=== PATIENT | female | born 1970 | race Caucasian/White ===

== ENCOUNTER 2021-08-19 17:16 | Emergency (ER) | payer MEDICARE, MEDICAID, SELFPAY ==
[2021-08-19 18:12] LABS: Add Urine Culture? Yes; Bacteria Urine 2+ /hpf; Bilirubin Urine Neg (Negative); Blood Urine Neg (Negative); Glucose Urine UA Norm (Normal); Ketones Urine Negative (Negative); Leukocyte Esterase Urine Negative (Negative); Nitrate Urine Negative (Negative); Protein Urine Neg (Negative); RBC Urine 0-4 /hpf (0-2); Squamous Epithelial Cell Urine 0-4 /hpf (0-5); Urine Appearance Clear (CLEAR); Urine Color Yellow (Yellow); Urobilinogen Urine 1 mg/dL (Negative); WBC Urine 0-4 /hpf (0-5); pH Urine 6 (5-7)
[2021-08-19 19:15] VITALS: BP 117/62; PULSE 72; RESP 16; TEMP 36.6; O2SAT 98; BMI 25.8
--- NOTE | 2021-08-19 19:22 | W.ED.FEMALGU ---
HPI - Female Genitourinary General: Chief complaint: Urogenital-Female Stated complaint: DEPRESSION Time Seen by Provider: 08/19/21 19:22 History of Present Illness: HPI Narrative: Patient is a 51-year-old female comes to the ED with UTI symptoms. She has been having on and off UTIs for the past 4 months. She reports having some dysuria and urine frequency. She denies any bladder pain or pain in lower back. Last antibiotic she was on for UTI was amoxicillin. Denies any fever, chills, abdominal pain, flank pain, nausea/vomiting. Associated symptoms: Deny abdominal pain, headache(s) or nausea Review of Systems Const: Denies: fever(s), chills or fatigue Eyes: Denies: change in vision or eye discomfort ENMT: Denies: throat pain, odynophagia, nasal discharge or nasal congestion Card: Denies: chest pain, palpitations, edema, swelling of feet/ankles, dyspnea on exertion or orthopnea Resp: Denies: dyspnea, productive cough or non-productive cough GI: Denies: abdominal pain, nausea, vomiting, diarrhea, constipation or hematochezia : Reports: dysuria and urinary frequency; Denies: flank pain or hematuria Musc: Denies: neck pain, back pain or extremity swelling Skin/Breast: Denies: rash or new lesions Neuro: Denies: headache(s), numbness in extremities or weakness in extremities PFSH ED PFSH: Medical History Psychiatric care Physical Exam Const: COMMON NORMALS: no acute distress, patient oriented x3, healthy appearing and alert GENERAL APPEARANCE: cooperative and comfortable HENMT: COMMON NORMALS: normocephalic HEAD & SCALP: normocephalic MOUTH: Normal oral and palatal mucosa present THROAT: posterior oropharynx normal and uvula midline Neck/C-Spine: COMMON NORMALS: supple GENERAL: Yes normal visual inspection Resp: COMMON NORMALS: normal respiratory effort, No retractions, No use of accessory muscles and clear to auscultation bilaterally AUSCULTATION: clear to auscultation bilaterally Cardio: COMMON NORMALS: regular rate, regular rhythm, S1 normal heart sound present, S2 normal heart sound present, No gallops present (Cardio), No clicks present (Cardio), No murmurs present (Cardio) and Peripheral pulses 2+ throughout RATE: regular rate RHYTHM: regular rhythm HEART SOUNDS: S1 normal heart sound present and S2 normal heart sound present PERIPHERAL PULSES: Peripheral pulses 2+ throughout GI: COMMON NORMALS: Normal to inspection, nondistended, normoactive bowel sounds present, Soft to palpation, non-tender and no masses PALPATION: Yes Soft to palpation : COMMON NORMALS: Yes no CVA tenderness BLADDER/KIDNEY EXAM: Yes no CVA tenderness Back/Pelvis: COMMON NORMALS: no CVA tenderness Extremity: COMMON NORMALS: normal to inspection Neuro: COMMON NORMALS: patient oriented x3 and moves all extremities SENSORIUM/ORIENTATION: Yes alert Skin: GENERAL SKIN EXAM: dry skin Course Vital Signs: Vital signs: Vital Signs Temperature 97.8 F 08/19/21 19:15 Pulse Rate 72 08/19/21 19:15 Respiratory Rate 16 08/19/21 19:15 Blood Pressure 117/62 08/19/21 19:15 Pulse Oximetry 98 08/19/21 19:15 MDM - Female MDM Narrative: Medical decision making narrative: Patient is a 51-year-old female comes to the ED with UTI symptoms. The symptoms have been occurring on and off for the past 4 months since she has been on 2 antibiotics. Last antibiotic she has been on was amoxicillin. Vitals are stable. Patient appears nontoxic and in no acute distress or pain and her exam is benign. UA showed some bacteria but little blood and white blood cells. Due to patient's symptoms we are going to treat her for UTI and give her a prescription for cefdinir. Patient is new to the area and does not have a primary care physician here. I placed an order with case management for patient to be referred to a PCP to get established with. Return ED precautions given. Patient understood agree with plan. Lab Data: Attestation: I reviewed the patient's lab results. Labs: Lab Results 08/19/21 17:30 Urine Color Yellow (Yellow) Urine Appearance Clear (CLEAR) Urine pH 6 (5-7) Ur Specific Gravit y 1.020 (1.005-1.030) Urine Protein Neg (Negative) Urine Glucose (UA) Norm (Normal) Urine Ketones Negative (Negative) Urine Blood Neg (Negative) Urine Nitrate Negative (Negative) Urine Bilirubin Neg (Negative) Urine Urobilinogen 1 mg/dL H mg/dL (Negative) Ur Leukocyte Moni ase Negative (Negative) Urine RBC 0-4 /hpf H /hpf (0-2) Urine WBC 0-4 /hpf H /hpf (0-5) Ur Squamous Epith Cells 0-4 /hpf H /hpf (0-5) Amorphous Sediment Not Reportable Urine Bacteria 2+ /hpf H /hpf (NONE) Discharge Plan Discharge Patient Disposition: Home Clinical Impression: Urinary tract infection Qualifiers: Urinary tract infection type: acute cystitis Hematuria presence: with hematuria Qualified Code(s): N30.01 - Acute cystitis with hematuria Condition: Stable Prescriptions: New cefdinir 300 mg capsule 300 mg PO BID 10 Days Qty: 20 RF: 0 No Action prazosin 2 mg capsule 2 mg PO BID RF: 0 risperidone [Risperdal] 1 mg tablet 1 mg PO BID RF: 0 gabapentin 300 mg capsule 300 mg PO TID RF: 0 divalproex [Depakote] 250 mg tablet,delayed release (DR/EC) 250 mg PO BID RF: 0 Discharge Orders: Discharge ED (Routine); Ordered 08/19/21 Ordered By: Luis Antonio Hernandez Discharge Diet: Regular Discharge Activity: Resume usual activity Patient Instructions: Urinary Tract Infection in Women (ED) Activity Restrictions/Additional Instructions: Follow-up with medical provider as directed. Case management will contact you in the next several days set up appointment with primary care physician. You can stop taking your previously prescribed amoxicillin. Take medications as prescribed. Drink plenty of fluids and stay hydrated. Return to the ER or your medical provider if condition worsens. Please read and understand discharge instructions. Thank you for choosing [facility] for your healthcare needs today. Please realize this is an emergency room and that we are providing you with a medical screening exam and this may not be complete and all inclusive of all the testing and or work up that you may need to determine your ailment or severity of your illness. It is very important that you follow up as instructed or that you return to the Emergency Department should you have concerns or if your condition changes or worsens in any way. Coding Level of Care Code ED Jai Alai Player for Jordyn oMrley Exam Comprehensive
--- NOTE | 2021-08-20 08:51 | PC.SOCIAL ---
referral received by Dr Hernandez to set up patient with a pcp. Tried to reach patient unable to reach or leave message at number provided.
== END 2021-08-19 19:51 | disposition home or self-care (01) ==
PROVIDERS: Family Medicine; Emergency Provider Physician Assistant
DX: N30.01 Acute cystitis with hematuria (principal)
CPT/HCPCS: 81001; 87077; 87086; 87186; 99282

== ENCOUNTER 2021-10-01 22:47 | Emergency (ER) | payer MEDICARE, MEDICAID, SELFPAY ==
[2021-10-01 22:59] VITALS: BP 133/48; PULSE 75; RESP 18; TEMP 36.8; O2SAT 100; BMI 31.6
--- NOTE | 2021-10-01 23:14 | ED_ITS ---
HPI - Extremity Problem General: Chief complaint: Extremity Problem,Nontraumatic Stated complaint: end of Fingers hurt Time Seen by Provider: 10/01/21 23:11 Source: patient Mode of arrival: ambulatory Limitations: no limitations History of Present Illness: 51-year-old female who states that she has history of chronic pain including neuropathy and fibromyalgia she states that she is to be on Lyrica but her then doctor took her off of it due to it being a controlled substance she states she no longer has a primary care doctor. States she was admitted recently to [facility] for psychiatric care and I discharged her on gabapentin she states the gabapentin does not help her chronic pain and she has been having increasing neuropathy pain in her fingertips. States pain is currently 5 out of 10 could not sleep tonight denies any injuries denies any worsening improving factors. Associated symptoms: Deny chest pain, fever(s) or rash Review of Systems Const: Denies: fever(s), chills, body aches or change in appetite Eyes: Denies: blurry vision or eye discomfort ENMT: Denies: throat pain or dental pain Card: Denies: chest pain Resp: Denies: dyspnea GI: Denies: abdominal pain, nausea, vomiting or diarrhea : Denies: dysuria Musc: Reports: extremity pain Skin/Breast: Denies: rash Neuro: Denies: headache(s) Psych: Denies: depression Maximus/Lymph: Denies: easy bruising All/Imm: Denies: urticaria PFSH ED PFSH: Medical History Psychiatric care Family History Denies family history of CAD (coronary artery disease) Physical Exam Const: COMMON NORMALS: no acute distress, patient oriented x3 and healthy appearing HENMT: COMMON NORMALS: normocephalic and atraumatic HEAD & SCALP: normocephalic and atraumatic Eye: COMMON NORMALS: Equal, round and reactive pupils present and EOMs intact bilaterally PUPIL: Yes Equal, round and reactive pupils present Neck/C-Spine: COMMON NORMALS: full ROM and supple Chest: COMMONS NORMALS: normal inspection of the chest and normal palpation of entire chest wall Resp: COMMON NORMALS: normal respiratory effort, No retractions, No use of accessory muscles and clear to auscultation bilaterally AUSCULTATION: clear to auscultation bilaterally Cardio: COMMON NORMALS: regular rate, regular rhythm and No murmurs present (Cardio) RATE: regular rate RHYTHM: regular rhythm GI: COMMON NORMALS: Normal to inspection, nondistended, normoactive bowel sounds present, Soft to palpation, non-tender and no masses PALPATION: Yes Soft to palpation Extremity: COMMON NORMALS: normal to inspection and full ROM OTHER: Good distal pulses no discoloration or tenderness to fingers Neuro: COMMON NORMALS: patient oriented x3, moves all extremities and no focal motor deficits Psych: COMMON NORMALS: mental status grossly normal, Normal thought process present and cooperative THOUGHT PROCESS: Normal thought process present Skin: COMMON NORMALS: no rashes or lesions noted and no wounds GENERAL SKIN EXAM: no rashes or lesions noted Course Vital Signs: Vital signs: Vital Signs Temperature 98.3 F 10/01/21 22:59 Pulse Rate 75 10/01/21 22:59 Respiratory Rate 18 10/01/21 22:59 Blood Pressure 133/48 10/01/21 22:59 Pulse Oximetry 100 10/01/21 22:59 MDM - Extremity (Nontraumatic) Medical Decision Making Patient presents here with chronic pain with pain to her fingers she has been taking gabapentin with little relief did give her hydrocodone here will prescribe her Naprosyn will get her PCP as she likely needs chronic pain management Discharge Plan Discharge Patient Disposition: Home Clinical Impression: Chronic pain Qualifiers: Chronic pain type: other chronic pain Qualified Code(s): G89.29 - Other chronic pain Condition: Stable Prescriptions: New Naprosyn 500 mg tablet 500 mg PO BID PRN (Reason: pain) Qty: 20 0RF No Action prazosin 2 mg capsule 2 mg PO BID 0RF risperidone [Risperdal] 1 mg tablet 1 mg PO BID 0RF gabapentin 300 mg capsule 300 mg PO TID 0RF divalproex [Depakote] 250 mg tablet,delayed release (DR/EC) 250 mg PO BID 0RF Discharge Orders: Discharge ED (Routine); Ordered 10/01/21 Ordered By: Prince Joseph Discharge Diet: Advance as tolerated Discharge Activity: Resume usual activity Patient Instructions: Chronic Pain (ED) Coding Level of Care Code ED Quality Control Engineering Technician for Chg Milli
[2021-10-01] MEDS: HYDROcodone-acetaminophen 5-325 mg Tablet 1 TAB PO (23:19)
--- NOTE | 2021-10-02 14:42 | DCPLANNER ---
manager metal had message to speak with patient about getting established with a primary care physician. manager metal called phone number [phone], this number was not taking calls at this time. manager metal unable to speak with patient or leave a voicemail for patient.
== END 2021-10-01 23:27 | disposition home or self-care (01) ==
PROVIDERS: Emergency Provider Emergency Medicine
DX: G89.29 Other chronic pain (principal)
CPT/HCPCS: 99283

== ENCOUNTER 2021-12-03 09:17 | Inpatient (IN) | payer MEDICARE, MEDICAID, SELFPAY ==
[2021-12-03 09:36] VITALS: BP 140/81; PULSE 90; RESP 14; TEMP 36.8; O2SAT 94; BMI 30.4
--- NOTE | 2021-12-03 10:24 | ED.C_ITS ---
Documented by User: JESÚS Zaragoza 12/04/21 07:19 HPI - Psych General: Chief Complaint: Psychiatric Symptoms Stated Complaint: suicidal tendencies/anxiety/stress/abd pain Time Seen by Provider: 12/03/21 10:00 History of Present Illness: Patient is a 51-year-old female comes to the ED for psych eval. Patient is new to the area and was going to be set up in the [facility] but needed to come get a psych eval for since she has been out of her medications. Patient says she takes divalproex, risperidone and trazodone and has been out of those medications for a month. She has a history of depression, anxiety and past suicidal ideations. She says today she is not currently suicidal. She endorses being very anxious. She does hear voices in her head that tell her that she is a terrible person. Denies any recent drug or alcohol use. Associated symptoms: Reports auditory hallucinations and depression; Deny visual hallucinations, homicidal ideation or suicidal ideation Review of Systems Const: Denies: fever(s), chills or fatigue Eyes: Denies: change in vision or eye discomfort ENMT: Denies: throat pain, odynophagia, nasal discharge or nasal congestion Card: Denies: chest pain, palpitations, edema, swelling of feet/ankles, dyspnea on exertion or orthopnea Resp: Denies: dyspnea, productive cough or non-productive cough GI: Denies: abdominal pain, nausea, vomiting, diarrhea, constipation or hematochezia : Denies: flank pain, dysuria or hematuria Musc: Denies: neck pain, back pain or extremity swelling Skin/Breast: Denies: rash or new lesions Neuro: Denies: headache(s), numbness in extremities or weakness in extremities Psych: Reports: anxiety, depression and auditory hallucinations; Denies: visual hallucinations, suicidal ideation or homicidal ideation [facility] ED PFSH: Medical History Psychiatric care Family History Denies family history of CAD (coronary artery disease) Physical Exam Const: COMMON NORMALS: patient oriented x3 and alert HENMT: COMMON NORMALS: normocephalic HEAD & SCALP: normocephalic MOUTH: Normal oral and palatal mucosa present THROAT: posterior oropharynx normal and uvula midline Neck/C-Spine: COMMON NORMALS: supple GENERAL: Yes normal visual inspection Resp: COMMON NORMALS: normal respiratory effort, No retractions, No use of accessory muscles and clear to auscultation bilaterally AUSCULTATION: clear to auscultation bilaterally Cardio: COMMON NORMALS: regular rate, regular rhythm, S1 normal heart sound present, S2 normal heart sound present, No gallops present (Cardio), No clicks present (Cardio), No murmurs present (Cardio) and Peripheral pulses 2+ throughout RATE: regular rate RHYTHM: regular rhythm HEART SOUNDS: S1 normal heart sound present and S2 normal heart sound present PERIPHERAL PULSES: Peripheral pulses 2+ throughout GI: COMMON NORMALS: Normal to inspection, nondistended, normoactive bowel sounds present, Soft to palpation, non-tender and no masses PALPATION: Yes Soft to palpation : COMMON NORMALS: Yes no CVA tenderness BLADDER/KIDNEY EXAM: Yes no CVA tenderness Back/Pelvis: COMMON NORMALS: no CVA tenderness Extremity: COMMON NORMALS: normal to inspection Neuro: COMMON NORMALS: patient oriented x3 and moves all extremities SENSORIUM/ORIENTATION: Yes alert Psych: COMMON NORMALS: mental status grossly normal, cooperative and speech normal ATTITUDE: Yes calm ACTIVITY/MOTOR BEHAVIOR: Yes appropriate eye contact and Yes fidgeting SPEECH: Yes normal speech THOUGHT CONTENT: No Suicidality present, No Homicidality present and Yes Hallucination(s) present auditory ATTENTION/CONCENTRATION: Yes attention grossly intact and Yes concentration grossly intact MEMORY/COGNITION: Yes memory grossly intact and Yes cognition grossly intact Skin: GENERAL SKIN EXAM: dry skin Course Consultations: Consultation #1: Dr. Pemberton was here in the ED seeing another patient, so I was able to talk to him in person about Tahira Hughes. He agreed to have patient admitted and they will reevaluate psych meds. Time: 10:15 Vital Signs: Vital signs: Vital Signs Temperature 98.2 F 12/06/21 19:40 Pulse Rate 80 12/07/21 06:00 Respiratory Rate 18 12/07/21 06:00 Blood Pressure 138/84 12/07/21 06:00 Pulse Oximetry 98 12/07/21 06:00 [facility] - Psych Medical Decision Making Patient is a 51-year-old female comes to the ED for psych eval. Patient is new to the area and was going to be set up in the [facility] but needed to come get a psych eval for since she has been out of her medications. Patient says she takes divalproex, risperidone and trazodone and has been out of those medications for a month. Denies any SI but does endorse auditory hallucinations. Psych prescreening labs performed. Urine drug screen was clean. Blood alcohol level normal. I talked with Dr. Pemberton about patient case and he agreed to have patient admitted into the [facility]. Dr. Rincon placed the admitting orders. Lab Data I reviewed the patient's lab results. : 12/03/21 10:30 12/03/21 10:30 Laboratory Results WBC 4.7 10^3/uL (4.0-10.0) 12/03/21 10:30 RBC 4.86 10^6/uL (4.1-5.3) 12/03/21 10:30 Hgb 14.4 g/dL (11.5-15.3) 12/03/21 10:30 Hct 44.2 % (37.0-47.0) 12/03/21 10:30 MCV 90.9 fl (81-99) 12/03/21 10:30 MCH 29.6 pg (28.0-34.0) 12/03/21 10:30 MCHC 32.6 g/dL (30.0-36.0) 12/03/21 10:30 RDW 12.7 % (12.1-15.1) 12/03/21 10:30 Plt Count 202 10^3/cmm (130-400) 12/03/21 10:30 MPV 12.6 fL (7.4-10.4) H 12/03/21 10:30 Neut % (Auto) 59.7 % 12/03/21 10:30 Lymph % (Auto) 26.7 % 12/03/21 10:30 [place] % (Auto) 10.7 % 12/03/21 10:30 Eos % (Auto) 1.1 % 12/03/21 10:30 Baso % (Auto) 0.9 % 12/03/21 10:30 Neut # (Auto) 2.81 10^3/uL (1.8-7.7) 12/03/21 10:30 Lymph # (Auto) 1.3 10^3/uL (0.8-4.8) 12/03/21 10:30 Williamson # (Auto) 0.5 10^3/uL (0.2-0.9) 12/03/21 10:30 Eos # (Auto) 0.1 10^3/uL (0.0-0.8) 12/03/21 10:30 Baso # (Auto) 0.0 10^3/uL (0.0-0.1) 12/03/21 10:30 Nucleated RBC % (auto) 0 % 12/03/21 10:30 Nucleated RBCs # 0.0 /100WBC 12/03/21 10:30 Sodium 137 mmol/L (136-145) 12/03/21 10:30 Potassium 4.3 mmol/L (3.5-5.1) 12/03/21 10:30 Chloride 100 mmol/L (98-107) 12/03/21 10:30 Carbon Dioxide 25 mmol/L (22-29) 12/03/21 10:30 Anion Gap 16.3 (5-19) 12/03/21 10:30 BUN 12 mg/dL (6-20) 12/03/21 10:30 Creatinine 0.6 mg/dL (0.5-0.9) 12/03/21 10:30 GFR Calculation 105.8 mL/min (90-130) 12/03/21 10:30 Glucose 105 mg/dL (65-115) 12/03/21 10:30 Calculated Osmolality 284 mOsm/kg (285-295) L 12/03/21 10:30 Calcium 9.6 mg/dL (8.5-10.5) 12/03/21 10:30 Total Bilirubin 0.4 mg/dL (0.15-1.2) 12/03/21 10:30 AST 19 U/L (0-32) 12/03/21 10:30 ALT 17 U/L (0-33) 12/03/21 10:30 Alkaline Phosphatase 111 IU/L (35-105) H 12/03/21 10:30 Total Protein 8.1 g/dL (6.6-8.7) 12/03/21 10:30 Albumin 4.7 g/dL (3.5-5.2) 12/03/21 10:30 Globulin 3.4 g/dL (1.3-4.6) 12/03/21 10:30 Urine Color Dark yellow (Yellow) 12/03/21 09:45 Urine Appearance Clear (CLEAR) 12/03/21 09:45 Urine pH 5 (5-7) 12/03/21 09:45 Ur Specific [place] 1.020 (1.005-1.030) 12/03/21 09:45 Urine Protein Neg (Negative) 12/03/21 09:45 Urine Glucose (UA) Norm (Normal) 12/03/21 09:45 Urine Ketones Negative (Negative) 12/03/21 09:45 Urine Blood Neg (Negative) 12/03/21 09:45 Urine Nitrate Negative (Negative) 12/03/21 09:45 Urine Bilirubin Neg (Negative) 12/03/21 09:45 Urine Urobilinogen Neg mg/dL (Negative) 12/03/21 09:45 Ur Leukocyte Esterase Negative (Negative) 12/03/21 09:45 Salicylates < 0.3 mg/dL (3-10) L 12/03/21 10:30 Urine Opiates Screen Negative ng/mL (Negative) 12/03/21 09:45 Acetaminophen < 5.0 ug/mL (10-30) L 12/03/21 10:30 Ur Barbiturates Screen Negative ng/mL (Negative) 12/03/21 09:45 Ur Phencyclidine Scrn Negative ng/mL (Negative) 12/03/21 09:45 Ur Amphetamines Screen Negative ng/mL (Negative) 12/03/21 09:45 U Benzodiazepines Scrn Negative ng/mL (Negative) 12/03/21 09:45 Urine Cocaine Screen Negative ng/mL (Negative) 12/03/21 09:45 U Marijuana (THC) Screen Negative ng/mL (Negative) 12/03/21 09:45 Ethyl Alcohol < 10 mg/dL (0-10) 12/03/21 10:30 Discharge Plan Discharge Patient Disposition: Admitted As Inpatient Admit Provider: Tommy Pemberton Condition: Stable Discharge Diet: Regular Discharge Activity: Resume usual activity Coding Level of Care Code ED [employer] Consultant for Chg Fwd Exam Comprehensive Documented by User: Arash Rincon MD 12/07/21 22:39 HPI - Psych General: Chief Complaint: Psychiatric Symptoms Stated Complaint: suicidal tendencies/anxiety/stress/abd pain Time Seen by Provider: 12/03/21 10:00 PFS ED PFSH: Medical History Psychiatric care Family History Denies family history of CAD (coronary artery disease) Course Vital Signs: Vital signs: Vital Signs Temperature 98.2 F 12/06/21 19:40 Pulse Rate 80 12/07/21 06:00 Respiratory Rate 18 12/07/21 06:00 Blood Pressure 138/84 12/07/21 06:00 Pulse Oximetry 98 12/07/21 06:00 MDM - Psych Medical Decision Making Patient is a 51-year-old female comes to the ED for psych eval. Patient is new to the area and was going to be set up in the [facility] but needed to come get a psych eval for since she has been out of her medications. Patient says she takes divalproex, risperidone and trazodone and has been out of those medications for a month. Denies any SI but does endorse auditory hallucinations. Psych prescreening labs performed. Urine drug screen was clean. Blood alcohol level normal. I talked with Dr. Pemberton about patient case and he agreed to have patient admitted into the [facility]. Dr. Rincon placed the admitting orders. I discussed this case with Luis Antonio ESPINOSA. I have reviewed documentation. Arash Rincon MD Emergency Medicine Lab Data : 12/03/21 10:30 12/03/21 10:30 Laboratory Results WBC 4.7 10^3/uL (4.0-10.0) 12/03/21 10:30 RBC 4.86 10^6/uL (4.1-5.3) 12/03/21 10:30 Hgb 14.4 g/dL (11.5-15.3) 12/03/21 10:30 Hct 44.2 % (37.0-47.0) 12/03/21 10:30 MCV 90.9 fl (81-99) 12/03/21 10:30 MCH 29.6 pg (28.0-34.0) 12/03/21 10:30 MCHC 32.6 g/dL (30.0-36.0) 12/03/21 10:30 RDW 12.7 % (12.1-15.1) 12/03/21 10:30 Plt Count 202 10^3/cmm (130-400) 12/03/21 10:30 MPV 12.6 fL (7.4-10.4) H 12/03/21 10:30 Neut % (Auto) 59.7 % 12/03/21 10:30 Lymph % (Auto) 26.7 % 12/03/21 10:30 Williamson % (Auto) 10.7 % 12/03/21 10:30 Eos % (Auto) 1.1 % 12/03/21 10:30 Baso % (Auto) 0.9 % 12/03/21 10:30 Neut # (Auto) 2.81 10^3/uL (1.8-7.7) 12/03/21 10:30 Lymph # (Auto) 1.3 10^3/uL (0.8-4.8) 12/03/21 10:30 Williamson # (Auto) 0.5 10^3/uL (0.2-0.9) 12/03/21 10:30 Eos # (Auto) 0.1 10^3/uL (0.0-0.8) 12/03/21 10:30 Baso # (Auto) 0.0 10^3/uL (0.0-0.1) 12/03/21 10:30 Nucleated RBC % (auto) 0 % 12/03/21 10:30 Nucleated RBCs # 0.0 /100WBC 12/03/21 10:30 Sodium 137 mmol/L (136-145) 12/03/21 10:30 Potassium 4.3 mmol/L (3.5-5.1) 12/03/21 10:30 Chloride 100 mmol/L (98-107) 12/03/21 10:30 Carbon Dioxide 25 mmol/L (22-29) 12/03/21 10:30 Anion Gap 16.3 (5-19) 12/03/21 10:30 BUN 12 mg/dL (6-20) 12/03/21 10:30 Creatinine 0.6 mg/dL (0.5-0.9) 12/03/21 10:30 GFR Calculation 105.8 mL/min (90-130) 12/03/21 10:30 Glucose 105 mg/dL (65-115) 12/03/21 10:30 Calculated Osmolality 284 mOsm/kg (285-295) L 12/03/21 10:30 Calcium 9.6 mg/dL (8.5-10.5) 12/03/21 10:30 Total Bilirubin 0.4 mg/dL (0.15-1.2) 12/03/21 10:30 AST 19 U/L (0-32) 12/03/21 10:30 ALT 17 U/L (0-33) 12/03/21 10:30 Alkaline Phosphatase 111 IU/L (35-105) H 12/03/21 10:30 Total Protein 8.1 g/dL (6.6-8.7) 12/03/21 10:30 Albumin 4.7 g/dL (3.5-5.2) 12/03/21 10:30 Globulin 3.4 g/dL (1.3-4.6) 12/03/21 10:30 Urine Color Dark yellow (Yellow) 12/03/21 09:45 Urine Appearance Clear (CLEAR) 12/03/21 09:45 Urine pH 5 (5-7) 12/03/21 09:45 Ur Specific [place] 1.020 (1.005-1.030) 12/03/21 09:45 Urine Protein Neg (Negative) 12/03/21 09:45 Urine Glucose (UA) Norm (Normal) 12/03/21 09:45 Urine Ketones Negative (Negative) 12/03/21 09:45 Urine Blood Neg (Negative) 12/03/21 09:45 Urine Nitrate Negative (Negative) 12/03/21 09:45 Urine Bilirubin Neg (Negative) 12/03/21 09:45 Urine Urobilinogen Neg mg/dL (Negative) 12/03/21 09:45 Ur Leukocyte Esterase Negative (Negative) 12/03/21 09:45 Salicylates < 0.3 mg/dL (3-10) L 12/03/21 10:30 Urine Opiates Screen Negative ng/mL (Negative) 12/03/21 09:45 Acetaminophen < 5.0 ug/mL (10-30) L 12/03/21 10:30 Ur Barbiturates Screen Negative ng/mL (Negative) 12/03/21 09:45 Ur Phencyclidine Scrn Negative ng/mL (Negative) 12/03/21 09:45 Ur Amphetamines Screen Negative ng/mL (Negative) 12/03/21 09:45 U Benzodiazepines Scrn Negative ng/mL (Negative) 12/03/21 09:45 Urine Cocaine Screen Negative ng/mL (Negative) 12/03/21 09:45 U Marijuana (THC) Screen Negative ng/mL (Negative) 12/03/21 09:45 Ethyl Alcohol < 10 mg/dL (0-10) 12/03/21 10:30 Discharge Plan Discharge Patient Disposition: Admitted As Inpatient Admit Provider: Tommy Pemberton Condition: Stable Discharge Diet: Regular Discharge Activity: Resume usual activity Coding Level of Care Code ED [employer] Consultant for Jordyn Fwd Exam Comprehensive
[2021-12-03 10:26] LABS: Add Urine Microscopic? NO; Charge for UA Resulting for Rev
[2021-12-03 10:33] LABS: Basophils % 0.9 %; Eosinophils # 0.1 10^3/uL (0.0-0.8); Eosinophils % 1.1 %; Hematocrit 44.2 % (37.0-47.0); Hemoglobin 14.4 g/dL (11.5-15.3); Lymphocytes # 1.3 10^3/uL (0.8-4.8); Lymphocytes % 26.7 %; Mean Corpuscular HGB Conc 32.6 g/dL (30.0-36.0); Mean Corpuscular Hemoglobin 29.6 pg (28.0-34.0); Mean Corpuscular Volume 90.9 fl (81-99); Mean Platelet Volume 12.6 fL (7.4-10.4); Monocytes # 0.5 10^3/uL (0.2-0.9); Monocytes % 10.7 %; Neutrophils # 2.81 10^3/uL (1.8-7.7); Neutrophils % 59.7 %; Nucleated Red Blood Cells % 0 %; Platelet Count 202 10^3/cmm (130-400); Red Blood Count 4.86 10^6/uL (4.1-5.3); Red Cell Distribution Width 12.7 % (12.1-15.1); White Blood Count 4.7 10^3/uL (4.0-10.0)
[2021-12-03 10:36] LABS: Urine Appearance Clear (CLEAR); Urine Color Dark Yellow (Yellow); pH Urine 5 (5-7)
[2021-12-03 10:37] LABS: Bilirubin Urine Neg (Negative); Blood Urine Neg (Negative); Glucose Urine UA Norm (Normal); Ketones Urine Negative (Negative); Leukocyte Esterase Urine Negative (Negative); Nitrate Urine Negative (Negative); Protein Urine Neg (Negative); Urobilinogen Urine Neg (Negative)
[2021-12-03 10:46] LABS: Amphetamines Screen Urine Negative (Negative); Barbiturates Screen Urine Negative (Negative); Benzodiazepines Screen Urine Negative (Negative); Cocaine Screen Urine Negative (Negative); Opiate Screen Urine Negative (Negative); PCP Screen Urine Negative (Negative); THC Screen Urine Negative (Negative)
[2021-12-03] MEDS: LORazepam 1 mg Tablet PO (10:46)
[2021-12-03 10:59] LABS: Alanine Aminotransferase 17 U/L (0-33); Albumin Level 4.7 g/dL (3.5-5.2); Alkaline Phosphatase 111 IU/L (35-105); Anion Gap 16.3 (5-19); Aspartate Amino Transferase 19 U/L (0-32); Blood Urea Nitrogen 12 mg/dL (6-20); Calcium 9.6 mg/dL (8.5-10.5); Carbon Dioxide 25 mmol/L (22-29); Chloride 100 mmol/L (98-107); Globulin 3.4 g/dL (1.3-4.6); Glomerular Filtration Rate 105.8 mL/min (90-130); Glucose 105 mg/dL (65-115); Osmolality Calculated 284 mOsm/kg (285-295); Potassium 4.3 mmol/L (3.5-5.1); Sodium 137 mmol/L (136-145); Total Bilirubin 0.4 mg/dL (0.15-1.2); Total Protein 8.1 g/dL (6.6-8.7)
[2021-12-03 11:02] LABS: Acetaminophen < 5.0 ug/mL (10-30); Alcohol Level < 10 mg/dL (0-10); Salicylate < 0.3 mg/dL (3-10)
--- NOTE | 2021-12-03 13:19 | PC.PHAR ---
pt states she takes care of her own medications-pt states she hasnt taken depakote dr 250mg,gabapentin 300mg,prazosin 2mg or risperidone 1mg in a couple of months ext med history shows last filled 08/06/21 30d/s
[2021-12-03 13:45] VITALS: BP 124/66; PULSE 88; TEMP 36.8; O2SAT 94
--- NOTE | 2021-12-03 14:34 | PC.NURSE ---
report to Ciara IRWIN on [facility]
[2021-12-03 14:36] VITALS: BP 115/70; PULSE 88; RESP 17; TEMP 36.8; O2SAT 98
[2021-12-03] MEDS: hyDROXYzine 25 mg Capsule 50 MG PO (14:58)
[2021-12-03] MEDS: nicotine 2 mg Gum BUCCAL (14:58)
[2021-12-03] MEDS: nicotine 4 mg lozenge MUCOUS MEM (19:32)
[2021-12-03 20:53] VITALS: RESP 18
[2021-12-04] MEDS: trazodone 50 mg Tablet PO ×2 (00:40→20:13)
--- NOTE | 2021-12-04 00:49 | PC.NURSE ---
0047- requested trazodone for sleep.
[2021-12-04 06:00] VITALS: BP 107/75; PULSE 72; RESP 18; TEMP 36.6; O2SAT 98
[2021-12-04] MEDS: ciprofloxacin 500 mg Tablet PO ×2 (08:34→17:12)
[2021-12-04] MEDS: nicotine 4 mg lozenge MUCOUS MEM ×3 (08:34→20:30)
[2021-12-04] MEDS: OLANZapine 5 mg ODT PO (09:01)
[2021-12-04] MEDS: ibuprofen 600 mg Tablet PO (09:50)
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
[2021-12-04] MEDS: nicotine 21 mg Patch 1 PATCH TRANSDERMA (12:20)
[2021-12-04 14:00] VITALS: BP 100/62; PULSE 72; RESP 16; TEMP 36.7; O2SAT 96
--- NOTE | 2021-12-04 16:53 | PC.SOCIAL ---
Client did not attend group.
[2021-12-04] MEDS: prazosin 1 mg Capsule 2 MG PO (20:13)
[2021-12-04] MEDS: risperiDONE 1 mg Tablet PO (20:13)
[2021-12-04 20:40] VITALS: BP 135/79; PULSE 80; RESP 16; TEMP 36.7; O2SAT 91
[2021-12-04] MEDS: benztropine 1 mg Tablet PO (22:15)
--- NOTE | 2021-12-04 22:18 | PC.NURSE ---
2218-requested something for restless leg. she was given cogentin.
[2021-12-05] MEDS: nicotine 2 mg Gum BUCCAL ×2 (04:40→20:42)
[2021-12-05 06:00] VITALS: BP 110/70; PULSE 82; RESP 16; TEMP 36.6; O2SAT 91
[2021-12-05] MEDS: ciprofloxacin 500 mg Tablet PO ×2 (08:28→17:31)
[2021-12-05] MEDS: nicotine 4 mg lozenge MUCOUS MEM ×5 (08:28→20:45)
--- NOTE | 2021-12-05 11:54 | P.NPUPN_ITS ---
Subjective NPU Subjective: She said that the other patients are driving her crazy and she needs to leave. She was reminded that the reason that she is here is to get her back on her medications which is the Risperdal, prazosin, trazodone and Cogentin. She said she did not like the risperidone because when she stopped taking it she felt bad. She was told that if we needed to change to a different antipsychotic we would need to keep her in the hospital longer. Our agreement with [facility] was that we get her back on her medications and that is what we need to do before we send her back there. She said that she would probably stop taking it when she leaves. She said she had some difficulty with her legs moving and feeling uncomfortable last night. She took some Cogentin and that helped somewhat and she was able to go back to sleep.She also asked she also wanted to go on clonazepam. She said that really works for her anxiety. Her doctor took her off of it because she has addictive tendencies. Mental Status Exam MSE Comments: This is an obese 51-year-old female who appears approximately her stated age and is in no acute distress. She is pleasant and cooperative with the evaluation. Eye contact is good. psychomotor activity is normal. Speech is at a regular rate and rhythm, normal volume, good articulation, not pressured. Alert, oriented X3 Attention and concentration is normal. Memory is intact Mood is good. Affect is euthymic. Thought process is logical and goal-directed. Thought content: She endorses auditory but no visual hallucinations. No delusions or paranoia are noted. No current suicidal ideation, and no homicidal ideation. Fund of knowledge is diminished. Insight and judgment appear to be poor. Impulse control is poor. Cognition: Patient Appearance: Appropriate Level of Consciousness: Awake and Follows Commands Patient Cognition Impaired: No Ability to Follow Directions: Good Patient Orientation (long list): Person, Place, Name, Age and Birthday Comprehension Ability: Understands Concepts Hallucination Type: None Delusion Description: Not Present Thought Process: Disorganized Affect: Affect Description: Appropriate and Calm Depressive Symptoms: Increased Anxiety Behavior: Patient Behavior: Appropriate and Cooperative Speech Pattern: Appropriate and Clear Vitals/I&O/Wt Last Vital Signs Temp 97.8 F 12/05/21 06:00 Pulse 82 12/05/21 06:00 Resp 16 12/05/21 06:00 BP 110/70 04/08/22 06:00 Pulse Ox 91 12/05/21 06:00 Data NPU : 12/03/21 10:30 12/03/21 10:30 Involuntary Hold Information 96 Hour Hold: 96 Hour Involuntary Admission: No Attestations NPU Medical Necessity Statement*: Inpatient hospitalization is medically necessary and the clinically appropriate intervention at this time. We will initiate medications and make changes as indicated. Coding Level of Care Code Acute Neurosurgery Physician for Jordyn Morley
[2021-12-05 14:00] VITALS: BP 112/50; PULSE 66; RESP 20; TEMP 36.6; O2SAT 99
--- NOTE | 2021-12-05 14:21 | PC.SOCIAL ---
Patient attended group, but did not contribute.
[2021-12-05] MEDS: ibuprofen 600 mg Tablet PO (19:14)
[2021-12-05] MEDS: prazosin 1 mg Capsule 2 MG PO (20:42)
[2021-12-05] MEDS: risperiDONE 1 mg Tablet 2 MG PO (20:42)
[2021-12-05] MEDS: hyDROXYzine 25 mg Capsule 50 MG PO (20:42)
[2021-12-05 21:32] VITALS: BP 111/77; PULSE 73; RESP 18; O2SAT 97
[2021-12-05] MEDS: benztropine 1 mg Tablet PO (22:36)
[2021-12-05] MEDS: alum-mag-hydroxide-sime 30 mL UDC PO (22:58)
[2021-12-06 05:47] VITALS: BP 121/88; PULSE 65; RESP 16; O2SAT 96
[2021-12-06] MEDS: ciprofloxacin 500 mg Tablet PO ×2 (10:07→17:17)
--- NOTE | 2021-12-06 10:14 | P.NPUPN_ITS ---
Subjective NPU Subjective: She was found in bed but awake at 10 AM. She says that she feels really good. She feels like her normal self. She would like to go back to [facility] today. She does not really understand why she cannot. She did not complain about any of her medications. She says that she slept well. Mental Status Exam MSE Comments: This is an obese 51-year-old female who appears approximately her stated age and is in no acute distress. She is pleasant and cooperative with the evaluation. Eye contact is good. psychomotor activity is normal. Speech is at a regular rate and rhythm, normal volume, good articulation, not pressured. Alert, oriented X3 Attention and concentration is normal. Memory is intact Mood is good. Affect is euthymic. Thought process is logical and goal-directed. Thought content: She endorses auditory but no visual hallucinations. No delusions or paranoia are noted. No current suicidal ideation, and no homicidal ideation. Fund of knowledge is diminished. Insight and judgment appear to be poor. Impulse control is poor. Cognition: Patient Appearance: Appropriate Level of Consciousness: Awake and Follows Commands Patient Cognition Impaired: No Ability to Follow Directions: Good Patient Orientation (long list): Person, Place, Name, Age, Birthday, Month and Year Comprehension Ability: Understands Concepts Hallucination Type: None Delusion Description: Not Present Thought Process: Appropriate Affect: Affect Description: Appropriate and Calm Depressive Symptoms: Increased Anxiety Behavior: Patient Behavior: Appropriate and Cooperative Speech Pattern: Appropriate and Clear Vitals/I&O/Wt Last Vital Signs Temp 97.8 F 12/05/21 14:00 Pulse 65 12/06/21 05:47 Resp 16 12/06/21 05:47 BP 121/88 12/06/21 05:47 Pulse Ox 96 12/06/21 05:47 Data NPU : 12/03/21 10:30 12/03/21 10:30 A&P Assessment and plan (1) Schizophrenia: Status: Acute (2) Amphetamine abuse: Status: Acute (3) Cannabis abuse: Status: Acute Plan This is a 51-year old female with past diagnosis of schizophrenia and bipolar 2 disorder and past methamphetamine and cannabis abuse.? Who is reportedly doing fairly well with risperidone and prazosin with trazodone to help sleep.? She says that she comes in to get restarted on this medication so that she can continue to be a resident at [facility]. Plan: 1.? Risperidone 2 mg.? Prazosin 2 mg and trazodone 50 mg at bedtime. 2.? Continue every 15 minute checks for safety. 3.? Encourage individual, group and milieu therapies. 4.? Encourage sober living treatment after discharge at the highest level of care to which she is willing to commit. 5.? We will monitor for safety for herself in the community prior to discharge. Involuntary Hold Information 96 Hour Hold: 96 Hour Involuntary Admission: No Attestations NPU Medical Necessity Statement*: Inpatient hospitalization is medically necessary and the clinically appropriate intervention at this time. We will initiate m edications and make changes as indicated. Coding Level of Care Code Acute Chief Compliance Officer for Jordyn Morley Diagnoses Schizophrenia F20.9 Amphetamine abuse F15.10 Cannabis abuse F12.10
[2021-12-06] MEDS: nicotine 4 mg lozenge MUCOUS MEM ×4 (10:20→20:23)
[2021-12-06 14:00] VITALS: BP 111/68; PULSE 61; RESP 16; TEMP 36.3; O2SAT 98
[2021-12-06] MEDS: OLANZapine 5 mg ODT PO (14:00)
--- NOTE | 2021-12-06 14:01 | PC.NURSE ---
Addendum entered by Marion Sanchez RN 12/06/21 14:55: Zyprexa effective. Patient calm Original Note: Prn note patient noted to be very anxious, she states she needs something for anxiety. Zyprexa given as needed for anxiety.
[2021-12-06] MEDS: gabapentin 300 mg Capsule PO ×2 (15:05→20:24)
[2021-12-06] MEDS: nicotine 21 mg Patch 1 PATCH TRANSDERMA (17:17)
[2021-12-06] MEDS: ibuprofen 600 mg Tablet PO (17:38)
[2021-12-06 19:40] VITALS: BP 126/74; PULSE 63; RESP 16; TEMP 36.8; O2SAT 95
[2021-12-06] MEDS: alum-mag-hydroxide-sime 30 mL UDC PO (20:23)
[2021-12-06] MEDS: prazosin 1 mg Capsule 2 MG PO (20:23)
[2021-12-06] MEDS: hyDROXYzine 25 mg Capsule 50 MG PO (20:24)
[2021-12-06] MEDS: risperiDONE 1 mg Tablet 2 MG PO (20:24)
[2021-12-06] MEDS: trazodone 50 mg Tablet PO (21:54)
--- NOTE | 2021-12-06 22:23 | PC.NURSE ---
PATIENT REQUESTED MAALOX AND HYDROXYZINE FOR ANXIETY. ONE HOUR LATER PATIENT WAS STILL UNABLE TO SLEEP. CLEANER OPERATOR CALLED AND A VERBAL ORDER FOR TRAZADONE WAS GIVEN IT HAD PREVIOUSLY BEEN DISCONTINUED. PATIENT IS NOW RESTING IN BED
[2021-12-07] MEDS: nicotine 2 mg Gum BUCCAL (00:33)
[2021-12-07] MEDS: OLANZapine 5 mg ODT PO (02:03)
--- NOTE | 2021-12-07 02:04 | PC.NURSE ---
Patient is at the nurses station wanting something to knock her out . She is wide awake and her speech is clear but pressured and rambling. She says she just can't get her head to shut off . Zyprexa 5 mg given.
[2021-12-07] MEDS: nicotine 4 mg lozenge MUCOUS MEM ×2 (05:33→08:44)
[2021-12-07 06:00] VITALS: BP 138/84; PULSE 80; RESP 18; O2SAT 98
--- NOTE | 2021-12-07 08:29 | P.NPUPN_ITS ---
Subjective NPU Subjective: She says that she is doing well. She feels like her medications are working well. She is very anxious about her things that she left at [facility]. They are in her room by the door is unlocked. All of her worldly belongings are there. She really wants to go back today but understands that we do not generally send people there on Sundays. Mental Status Exam MSE Comments: This is an obese 51-year-old female who appears approximately her stated age and is in no acute distress. She is pleasant and cooperative with the evaluation. Eye contact is good. psychomotor activity is normal. Speech is at a regular rate and rhythm, normal volume, good articulation, not pressured. Alert, oriented X3 Attention and concentration is normal. Memory is intact Mood is good. Affect is euthymic. Thought process is logical and goal-directed. Thought content: She endorses auditory but no visual hallucinations. No delusions or paranoia are noted. No current suicidal ideation, and no homicidal ideation. Fund of knowledge is diminished. Insight and judgment appear to be poor. Impulse control is poor. Cognition: Patient Appearance: Appropriate Level of Consciousness: Awake and Follows Commands Patient Cognition Impaired: No Ability to Follow Directions: Good Patient Orientation (long list): Person, Place, Name, Age, Birthday, Month and Year Comprehension Ability: Understands Concepts Hallucination Type: None Delusion Description: Not Present Thought Process: Flight of Ideas Affect: Affect Description: Appropriate Depressive Symptoms: Increased Anxiety Behavior: Patient Behavior: Cooperative Speech Pattern: Appropriate and Clear Vitals/I&O/Wt Last Vital Signs Temp 98.2 F 12/06/21 19:40 Pulse 80 12/07/21 06:00 Resp 18 12/07/21 06:00 BP 138/84 12/07/21 06:00 Pulse Ox 98 12/07/21 06:00 Weight last 48 hrs Weight 96.071 kg Data NPU : 12/03/21 10:30 12/03/21 10:30 A&P Assessment and plan (1) Schizophrenia: Status: Acute (2) Amphetamine abuse: Status: Acute (3) Cannabis abuse: Status: Acute Plan This is a 51-year old female with past diagnosis of schizophrenia and bipolar 2 disorder and past methamphetamine and cannabis abuse.? Who is reporte dly doing fairly well with risperidone and prazosin with trazodone to help sleep.? She says that she comes in to get restarted on this medication so that she can continue to be a resident at [facility]. Plan: 1.? Risperidone 2 mg.? Prazosin 2 mg and trazodone 50 mg at bedtime. 2.? Continue every 15 minute checks for safety. 3.? Encourage individual, group and milieu therapies. 4.? Encourage sober living treatment after discharge at the highest level of care to which she is willing to commit. 5.? We will monitor for safety for herself in the community prior to discharge. Involuntary Hold Information 96 Hour Hold: 96 Hour Involuntary Admission: No Attestations NPU Medical Necessity Statement*: Inpatient hospitalization is medically necessary and the clinically appropriate intervention at this time. We will initiate medications and make changes as indicated. Coding Level of Care Code Acute Cab Worker for Jordyn Morley Diagnoses Schizophrenia F20.9 Amphetamine abuse F15.10 Cannabis abuse F12.10
[2021-12-07] MEDS: gabapentin 300 mg Capsule PO (08:31)
[2021-12-07] MEDS: ciprofloxacin 500 mg Tablet PO (08:31)
[2021-12-07] MEDS: nystatin powder 15 gm Btl 1 APPLIC TOPICAL (08:31)
--- NOTE | 2021-12-07 10:21 | W.PM.NPUDCS ---
Diagnoses at Discharge Discharge Diagnosis (1) Schizophrenia: Status: Acute (2) Amphetamine abuse: Status: Acute (3) Cannabis abuse: Status: Acute Reason for Visit Reason for Visit: suicidal tendencies/anxiety/stress/abd pain Brief History: History of Present Illness Tahira Hughes is a 51 year old female who was admitted through our emergency department yesterday with the following report: Patient is a 51-year-old female comes to the ED for psych eval.? Patient is new to the area and was going to be set up in the [facility] but needed to come get a psych eval for since she has been out of her medications.? Patient says she takes divalproex, risperidone and trazodone and has been out of those medications for a month.? She has a history of depression, anxiety and past suicidal ideations.? She says today she is not currently suicidal.? She endorses being very anxious.? She does hear voices in her head that tell her that she is a terrible person. ? Denies any recent drug or alcohol use. Associated symptoms: Reports auditory hallucinations and depression; Deny visual hallucinations, homicidal ideation or suicidal ideation She was admitted to the neuropsychiatry unit for definitive treatment of these issues.? This is a 51 year old female who is a resident at [facility] who comes to get reestablished on her medications. She said she has a lot of anger and fear which the medication help somewhat but not greatly. She said that she has been on Prozac, Zoloft and Paxil but they all like her fat and she does not want an antidepressant. She was on Wellbutrin XL 150 mg briefly and said that did not do anything and does not want to take that. She said the Depakote also made her fat she does not want a mood stabilizer. She said risperidone 2 mg daily was helpful but another patient told her that it was an antipsychotic and she really did not want that. When she was told that it was frequently used as a mood stabilizer for bipolar she agreed to reestablish that. Prices into milligrams works well for her nightmares and help her sleep. She would also like trazodone to help her sleep and considers that like a mood stabilizer. She was prescribed Topamax 25 mg last summer but does not remember it. Hospital Course Hospital Course She slowly acclimated to the individual, group and milieu therapies provided. She was restarted on risperidone 2 mg, prazosin 2 mg and gabapentin 300 mg 3 times daily. She tolerated these doses and showed steady improvement during her stay. She was able to contract for safety outside hospital prior to discharge. During the hospitalization, patient had routine laboratory studies which were within normal limits except for few outliers. Additionally there was a general medical evaluation which was also within normal limits and revealed no new acute processes. She was here to get back on her medications in order to go back to [facility] more stable. She insisted on leaving on Wednesday when our social workers were not here to coordinate the discharge with [facility]. She was advised that they would most likely not take her back under those circumstances. She insisted on signing out AGAINST MEDICAL ADVICE. Discharge Summary: At the time of discharge, lethality was denied and psychosis was resolving. Mood and anxiety were well managed. She says that she has appointments. She does not know whether or not they will let her return to her room at [facility]. She says that she has lived on the streets before and can do it again. Was evaluated and deemed to be absent credible lethality, and had achieved the maximum benefit from an inpatient hospitalization, so was discharged. Involuntary Hold Information 96 Hour Hold: 96 Hour Involuntary Admission: No Mental Status Exam MSE Comments: This is an obese 51-year-old female who appears approximately her stated age and is in no acute distress. She is pleasant and cooperative with the evaluation. Eye contact is good. psychomotor activity is normal. Speech is at a regular rate and rhythm, normal volume, good articulation, not pressured. Alert, oriented X3 Attention and concentration is normal. Memory is intact Mood is good. Affect is euthymic. Thought process is logical and goal-directed. Thought content: She endorses auditory but no visual hallucinations. No delusions or paranoia are noted. No current suicidal ideation, and no homicidal ideation. Fund of knowledge is diminished. Insight and judgment appear to be poor. Impulse control is poor. Cognition: Patient Appearance: Appropriate Level of Consciousness: Awake and Follows Commands Patient Cognition Impaired: No Ability to Follow Directions: Good Patient Orientation (long list): Person, Place, Name, Age, Birthday, Month and Year Comprehension Ability: Understands Concepts Hallucination Type: None Delusion Description: Not Present Thought Process: Flight of Ideas Affect: Affect Description: Anxious Depressive Symptoms: Increased Anxiety Behavior: Patient Behavior: Angry and Intrusive Speech Pattern: Appropriate and Clear Discharge Data Studies Completed and Pending: Laboratory Results WBC 4.7 10^3/uL (4.0- 10.0) 12/03/21 10:30 RBC 4.86 10^6/uL (4.1 -5.3) 12/03/21 10:30 Hgb 14.4 g/dL (11.5-1 5.3) 12/03/21 10:30 Hct 44.2 % (37.0-47.0 ) 12/03/21 10:30 MCV 90.9 fl (81-99) 12/03/21 10:30 MCH 29.6 pg (28.0-34. 0) 12/03/21 10:30 MCHC 32.6 g/dL (30.0-3 6.0) 12/03/21 10:30 RDW 12.7 % (12.1-15.1 ) 12/03/21 10:30 Plt Count 202 10^3/cmm (130 -400) 12/03/21 10:30 MPV 12.6 fL (7.4-10.4 ) H 12/03/21 10:30 Neut % (Auto) 59.7 % 12/03/21 10:30 Lymph % (Auto) 26.7 % 12/03/21 10:30 [place] % (Auto) 10.7 % 12/03/21 10:30 Eos % (Auto) 1.1 % 12/03/21 10:30 Baso % (Auto) 0.9 % 12/03/21 10:30 Neut # (Auto) 2.81 10^3/uL (1.8 -7.7) 12/03/21 10:30 Lymph # (Auto) 1.3 10^3/uL (0.8- 4.8) 12/03/21 10:30 [place] # (Auto) 0.5 10^3/uL (0.2- 0.9) 12/03/21 10:30 Eos # (Auto) 0.1 10^3/uL (0.0- 0.8) 12/03/21 10:30 Baso # (Auto) 0.0 10^3/uL (0.0- 0.1) 12/03/21 10:30 Nucleated RBC % (a uto) 0 % 12/03/21 10:30 Nucleated RBCs # 0.0 /100WBC 12/03/21 10:30 Sodium 137 mmol/L (136-1 45) 12/03/21 10:30 Potassium 4.3 mmol/L (3.5-5 .1) 12/03/21 10:30 Chloride 100 mmol/L (98-10 7) 12/03/21 10:30 Carbon Dioxide 25 mmol/L (22-29) 12/03/21 10:30 Anion Gap 16.3 (5-19) 12/03/21 10:30 BUN 12 mg/dL (6-20) 12/03/21 10:30 Creatinine 0.6 mg/dL (0.5-0. 9) 12/03/21 10:30 GFR Calculation 105.8 mL/min (90- 130) 12/03/21 10:30 Glucose 105 mg/dL (65-115 ) 12/03/21 10:30 Calculated Osmolal ity 284 mOsm/kg (285- 295) L 12/03/21 10:30 Calcium 9.6 mg/dL (8.5-10 .5) 12/03/21 10:30 Total Bilirubin 0.4 mg/dL (0.15-1 .2) 12/03/21 10:30 AST 19 U/L (0-32) 12/03/21 10:30 ALT 17 U/L (0-33) 12/03/21 10:30 Alkaline Phosphata se 111 IU/L (35-105) H 12/03/21 10:30 Total Protein 8.1 g/dL (6.6-8.7 ) 12/03/21 10:30 Albumin 4.7 g/dL (3.5-5.2 ) 12/03/21 10:30 Globulin 3.4 g/dL (1.3-4.6 ) 12/03/21 10:30 Urine Color Dark yellow (Yel low) 12/03/21 09:45 Urine Appearance Clear (CLEAR) 12/03/21 09:45 Urine pH 5 (5-7) 12/03/21 09:45 Ur Specific Gravit y 1.020 (1.005-1.0 30) 12/03/21 09:45 Urine Protein Neg (Negative) 12/03/21 09:45 Urine Glucose (UA) Norm (Normal) 12/03/21 09:45 Urine Ketones Negative (Negati ve) 12/03/21 09:45 Urine Blood Neg (Negative) 12/03/21 09:45 Urine Nitrate Negative (Negati ve) 12/03/21 09:45 Urine Bilirubin Neg (Negative) 12/03/21 09:45 Urine Urobilinogen Neg mg/dL (Negati ve) 12/03/21 09:45 Ur Leukocyte Moni ase Negative (Negati ve) 12/03/21 09:45 Salicylates < 0.3 mg/dL (3-10 ) L 12/03/21 10:30 Urine Opiates Scre en Negative ng/mL (N egative) 12/03/21 09:45 Acetaminophen < 5.0 ug/mL (10-3 0) L 12/03/21 10:30 Ur Barbiturates Sc reen Negative ng/mL (N egative) 12/03/21 09:45 Ur Phencyclidine S crn Negative ng/mL (N egative) 12/03/21 09:45 Ur Amphetamines Sc reen Negative ng/mL (N egative) 12/03/21 09:45 U Benzodiazepines Scrn Negative ng/mL (N egative) 12/03/21 09:45 Urine Cocaine Scre en Negative ng/mL (N egative) 12/03/21 09:45 U Marijuana (THC) Screen Negative ng/mL (N egative) 12/03/21 09:45 Ethyl Alcohol < 10 mg/dL (0-10) 12/03/21 10:30 Vitals: Last Vital Signs Temp 98.2 F 12/06/21 19:40 Pulse 80 12/07/21 06:00 Resp 18 12/07/21 06:00 BP 138/84 12/07/21 06:00 Pulse Ox 98 12/07/21 06:00 Discharge Plan Discharge Patient Disposition: Left Against Medical Advice Condition: Stable Prescriptions: Continued ciprofloxacin HCl 500 mg tablet 500 mg PO BID Qty: 10 0RF ondansetron 4 mg tablet,disintegrating 4 mg PO Q8H PRN (Reason: nausea and vomiting) Qty: 15 0RF Stress Vitamins Tablet 1 tab PO DAILY 0RF gabapentin 300 mg Tablet 300 mg PO TID 0RF Discharge Orders: Discharge Order (Routine); Ordered 12/07/21 Ordered By: Zeb Mcgowan Referrals: Elsi Roque APRN [Nurse Practitioner] - 12/11/21 2:45 pm (2:45pm is show time for 3pm appointment.) Markos Kc MD [Physician] - 12/10/21 1:30 pm Discharge Diet: Regular Discharge Activity: Resume usual activity Patient Instructions: Schizophrenia (DC), Methamphetamine Use Disorder (DC) Discharge Attestations NPU Time Spent in Discharge Care*: less than 30 min Specific Discharge Activities: Specific discharge activities: educating patient, discussing with case management director/social workers/dc planners, documenting/other paperwork and evaluating patient/reviewing data Coding Level of Care Code Acute Chg FW DC note Diagnoses Schizophrenia F20.9 Amphetamine abuse F15.10 Cannabis abuse F12.10
--- NOTE | 2021-12-07 10:25 | PC.NURSE ---
Patient at desk multiple times this shift telling this RN that the physician said she could be discharged if she had a bed at [facility]. I attempted to contact someone at [facility] and left a voicemail to return call. Patient is agitated. Attempt to deescalate and redirect. Informed patient that our molder pipe covering would be able to set up transportation and make sure she has a bed when discharged in the morning. Patient request to leave AMA. Physician said patient could leave AMA and prescriptions would not be filled. Patient states I,m getting the hell out of here, give me my papers. Discharge packet given with follow up appointment and patient condition education, Mocars number and card for Neuro Psych unit.
== END 2021-12-07 10:30 | disposition left against medical advice (07) | DRG 885 ==
LOC: ER 12:30 → NP 13:37
PROVIDERS: Admitting Provider Psychiatry & Neurology Psychiatry; Emergency Provider Physician Assistant; Visit Provider Psychiatry & Neurology Psychiatry
DX: F25.0 Schizoaffective disorder, bipolar type (principal); F41.9 Anxiety disorder, unspecified; Z59.01 Sheltered homelessness; F15.11 Other stimulant abuse, in remission; F12.11 Cannabis abuse, in remission; Z53.29 Procedure and treatment not carried out because of patient's decision for other reasons
CPT/HCPCS: 74177; 80053; 80306; 80307; 81001; 81003; 83690; 85025; 96361; 96374; 97150; 97165; 99284; J2405; Q9967

== ENCOUNTER 2021-12-12 11:50 | Emergency (ER) | payer MEDICARE, MEDICAID, SELFPAY ==
[2021-12-12 12:02] VITALS: BP 188/64; PULSE 108; RESP 16; TEMP 36.6; O2SAT 97; BMI 30.4
[2021-12-12] MEDS: sodium chloride 0.9% 1,000 ML 999 ML IV (13:01)
[2021-12-12] MEDS: ondansetron 2 mg/ML SDV 2 mL 4 MG IVP (13:01)
[2021-12-12 13:04] VITALS: BP 135/86; PULSE 85; O2SAT 96
[2021-12-12 13:15] LABS: Basophils % 0.1 %; Eosinophils % 0.4 %; Hematocrit 42.3 % (37.0-47.0); Hemoglobin 13.6 g/dL (11.5-15.3); Lymphocytes # 0.4 10^3/uL (0.8-4.8); Lymphocytes % 3.9 %; Mean Corpuscular HGB Conc 32.2 g/dL (30.0-36.0); Mean Corpuscular Hemoglobin 29.4 pg (28.0-34.0); Mean Corpuscular Volume 91.6 fl (81-99); Mean Platelet Volume 12.3 fL (7.4-10.4); Monocytes # 0.3 10^3/uL (0.2-0.9); Monocytes % 2.5 %; Neutrophils # 9.61 10^3/uL (1.8-7.7); Neutrophils % 92.6 %; Nucleated Red Blood Cells % 0 %; Platelet Count 217 10^3/cmm (130-400); Red Blood Count 4.62 10^6/uL (4.1-5.3); Red Cell Distribution Width 12.9 % (12.1-15.1); White Blood Count 10.4 10^3/uL (4.0-10.0)
--- NOTE | 2021-12-12 13:23 | ED_ITS ---
HPI - Dizziness General: Chief Complaint: Dizziness Stated Complaint: N/V/D ABD Pain, dizziness Time Seen by Provider: 12/12/21 12:16 History of Present Illness: HPI Narrative: Patient comes in with vomiting and diarrhea that started last night. Denies fever, abdominal pain, cough. Associated symptoms: Reports vomiting; Denies chest pain, headache(s), nausea or palpitations Associated neuro symptoms: Deny numbness in extremities Review of Systems Const: Denies: fever(s) or body aches Eyes: Denies: change in vision or blurry vision ENMT: Denies: throat pain or odynophagia Card: Denies: chest pain or palpitations Resp: Denies: dyspnea or productive cough GI: Reports: vomiting and diarrhea; Denies: abdominal pain or nausea : Denies: flank pain or dysuria Musc: Denies: neck pain or back pain Skin/Breast: Denies: rash or pruritus Neuro: Denies: headache(s) or numbness in extremities Psych: Denies: anxiety or change in appetite Endo: Denies: polyuria or excessive sweating PFSH ED PFSH: Medical History Psychiatric care Family History Denies family history of CAD (coronary artery disease) Female Reproductive History: Date of last menstrual period: 03/30/12 Physical Exam Const: COMMON NORMALS: no acute distress, patient oriented x3, healthy appearing and alert HENMT: COMMON NORMALS: normocephalic and atraumatic HEAD & SCALP: normocephalic and atraumatic OTHER: Dry mucous membranes Eye: COMMON NORMALS: Equal, round and reactive pupils present and EOMs intact bilaterally PUPIL: Yes Equal, round and reactive pupils present Neck/C-Spine: COMMON NORMALS: full ROM and supple Resp: COMMON NORMALS: normal respiratory effort, No retractions and No use of accessory muscles Cardio: COMMON NORMALS: regular rate and regular rhythm RATE: regular rate RHYTHM: regular rhythm GI: COMMON NORMALS: Normal to inspection, nondistended, normoactive bowel sounds present, Soft to palpation and non-tender PALPATION: Yes Soft to palpation Back/Pelvis: COMMON NORMALS: thoracic and lumbar spine normal to inspection and no thoracic nor lumbar tenderness Extremity: COMMON NORMALS: normal to inspection and full ROM Neuro: COMMON NORMALS: patient oriented x3 SENSORIUM/ORIENTATION: Yes alert Psych: COMMON NORMALS: mental status grossly normal and cooperative Skin: COMMON NORMALS: no rashes or lesions noted and no wounds GENERAL SKIN EXAM: no rashes or lesions noted Course Vital Signs: Vital signs: Vital Signs Temperature 97.8 F 12/12/21 12:02 Pulse Rate 108 H 12/12/21 12:02 Respiratory Rate 16 12/12/21 12:02 Blood Pressure 188/64 12/12/21 12:02 Pulse Oximetry 97 12/12/21 12:02 MDM - Dizziness Medical Decision Making Patient comes in with vomiting and diarrhea that started last night. Denies fever, abdominal pain, cough. On physical exam she has mildly dry mucous membranes. Will check labs, give IV fluids, treat nausea with IV Zofran, give Imodium, and reassess. Lab Data : 12/12/21 12:54 12/12/21 12:54 Laboratory Results WBC 10.4 10^3/uL (4.0-10.0) H 12/12/21 12:54 RBC 4.62 10^6/uL (4.1-5.3) 12/12/21 12:54 Hgb 13.6 g/dL (11.5-15.3) 12/12/21 12:54 Hct 42.3 % (37.0-47.0) 12/12/21 12:54 MCV 91.6 fl (81-99) 12/12/21 12:54 MCH 29.4 pg (28.0-34.0) 12/12/21 12:54 MCHC 32.2 g/dL (30.0-36.0) 12/12/21 12:54 RDW 12.9 % (12.1-15.1) 12/12/21 12:54 Plt Count 217 10^3/cmm (130-400) 12/12/21 12:54 MPV 12.3 fL (7.4-10.4) H 12/12/21 12:54 Neut % (Auto) 92.6 % 12/12/21 12:54 Lymph % (Auto) 3.9 % 12/12/21 12:54 [place] % (Auto) 2.5 % 12/12/21 12:54 Eos % (Auto) 0.4 % 12/12/21 12:54 Baso % (Auto) 0.1 % 12/12/21 12:54 Neut # (Auto) 9.61 10^3/uL (1.8-7.7) H 12/12/21 12:54 Lymph # (Auto) 0.4 10^3/uL (0.8-4.8) L 12/12/21 12:54 [place] # (Auto) 0.3 10^3/uL (0.2-0.9) 12/12/21 12:54 Eos # (Auto) 0.0 10^3/uL (0.0-0.8) 12/12/21 12:54 Baso # (Auto) 0.0 10^3/uL (0.0-0.1) 12/12/21 12:54 Nucleated RBC % (auto) 0 % 12/12/21 12:54 Nucleated RBCs # 0.0 /100WBC 12/12/21 12:54 Discharge Plan Discharge Condition: Stable Prescriptions: No Action ciprofloxacin HCl 500 mg tablet 500 mg PO BID Qty: 10 0RF ondansetron 4 mg tablet,disintegrating 4 mg PO Q8H PRN (Reason: nausea and vomiting) Qty: 15 0RF Stress Vitamins Tablet 1 tab PO DAILY 0RF gabapentin 300 mg Tablet 300 mg PO TID 0RF Coding Level of Care Code ED Consumer Affairs Specialist for Aliciag Milli
[2021-12-12 13:30] VITALS: PULSE 86; O2SAT 95
[2021-12-12 13:32] LABS: Alanine Aminotransferase 15 U/L (0-33); Albumin Level 4.5 g/dL (3.5-5.2); Alkaline Phosphatase 111 IU/L (35-105); Anion Gap 16.9 (5-19); Aspartate Amino Transferase 16 U/L (0-32); Blood Urea Nitrogen 11 mg/dL (6-20); Calcium 8.8 mg/dL (8.5-10.5); Carbon Dioxide 22 mmol/L (22-29); Chloride 104 mmol/L (98-107); Globulin 2.9 g/dL (1.3-4.6); Glomerular Filtration Rate 130.6 mL/min (90-130); Glucose 130 mg/dL (65-115); Osmolality Calculated 289 mOsm/kg (285-295); Potassium 3.9 mmol/L (3.5-5.1); Sodium 139 mmol/L (136-145); Total Bilirubin 0.3 mg/dL (0.15-1.2); Total Protein 7.4 g/dL (6.6-8.7)
[2021-12-12] MEDS: loperamide 2 mg Capsule 4 MG PO (13:55)
--- NOTE | 2021-12-12 13:57 | PC.NURSE ---
while at bedside pt states, i want this out of my arm . advised pt wait she stated, i just want this out of my arm . iv removed.
--- NOTE | 2021-12-12 14:10 | PC.PHAR ---
pt states she takes no rx medications-pt states not taking divalproex dr 250mg bid or gabapentin 300mg tid last filled on 08/06/21 30d/s
--- NOTE | 2021-12-12 14:16 | PC.NURSE ---
PT TO [facility] STATING, CAN I JUST LEAVE I GOT TO GO OR I'M GONNA GET KICKED OUT OF MY SENIOR CARE . INFORMED HER I WOULD BE THERE JUSTO BUT NEEDED TO CHECK ON A PT. PT STATED, I NEED TO LEAVE NOW I DON'T HAVE THE LUXURY OF A HOME AND A BED . OPENED THE DOOR AND LET PT OUT DOOR. PT IS AMB WITH A STEADY GAIT UNASSISTED. PT DENIES ANY FURTHER NEEDS.
== END 2021-12-12 14:20 | disposition home or self-care (01) ==
PROVIDERS: Emergency Provider Emergency Medicine
DX: R11.2 Nausea with vomiting, unspecified (principal); R19.7 Diarrhea, unspecified
CPT/HCPCS: 80053; 85025; 96361; 96374; 99284; J2405; J7030

== ENCOUNTER 2021-12-17 10:56 | Emergency (ER) | payer MEDICARE, MEDICAID, SELFPAY ==
[2021-12-17 11:15] VITALS: BP 131/66; PULSE 70; RESP 16; O2SAT 97
--- NOTE | 2021-12-17 11:40 | PC.PHAR ---
pt states she takes no rx medications-pt states she just takes otc medications entered-see pharmacy note from previous visit in november 2021 about medication
[2021-12-17 11:43] VITALS: BP 131/66; PULSE 70; RESP 16; O2SAT 97
--- NOTE | 2021-12-17 11:49 | ED.C_ITS ---
HPI - Psych General: Chief Complaint: Psychiatric Symptoms Stated Complaint: Phyc Eval Time Seen by Provider: 12/17/21 11:30 PFSH ED PFSH: Medical History Psychiatric care Family History Denies family history of CAD (coronary artery disease) Female Reproductive History: Date of last menstrual period: 03/30/12 Course Vital Signs: Vital signs: Vital Signs Pulse Rate 70 12/17/21 11:43 Respiratory Rate 16 12/17/21 11:43 Blood Pressure 131/66 12/17/21 11:43 Pulse Oximetry 97 12/17/21 11:43 Discharge Plan Discharge Condition: Stable Prescriptions: No Action Stress Vitamins Tablet 1 tab PO DAILY 0RF ibuprofen 200 mg Tablet 600 mg PO Q6H PRN (Reason: Pain) 0RF albuterol sulfate 90 mcg/actuation HFA aerosol inhaler 2 puff INHALATION Q4H PRN (Reason: Shortness Of Breath) 0RF Coding Level of Care Code ED Vice President Global Digital Marketing for Jordyn Morley
--- NOTE | 2021-12-17 11:56 | W.ED.GENADLT ---
HPI - General Adult General: Chief complaint: Psychiatric Symptoms Stated complaint: Phyc Eval Time Seen by Provider: 12/17/21 11:30 History of Present Illness: Patient is a 51-year-old female with a history of anxiety presenting to the emergency room with my anxiety has worsened. Patient tells me that she currently lives at home homeless care home and has been accused by another tenant of being disruptive. Patient tells me that currently does not have a job and has a lot of stress going on. Patient denies any active hallucinations (visual or auditory) or any active suicidal homicidal ideation. Onset: 3 days ago Duration:3 days Location:home Severity:moderate Associated symptoms: Deny chest pain, dyspnea, nausea, rash, palpitations or vomiting Review of Systems Const: Denies: fever(s) or chills Eyes: Denies: change in vision ENMT: Denies: mouth pain Card: Denies: chest pain or palpitations Resp: Denies: dyspnea or non-productive cough GI: Denies: abdominal pain, nausea, vomiting or diarrhea : Denies: dysuria Musc: Denies: extremity pain Skin/Breast: Denies: rash or new lesions Neuro: Denies: weakness in extremities Psych: Reports: irritability and other (+anxiety) Maximus/Lymph: Denies: easy bruising PFSH ED PFSH: Medical History Psychiatric care Family History Denies family history of CAD (coronary artery disease) Social History (Updated 12/17/21 @ 11:58 by Margaret Antoine MD) Smoking and tobacco status: never smoked Alcohol intake: never Substance/Drug Use: never Female Reproductive History: Date of last menstrual period: 03/30/12 Physical Exam Const: COMMON NORMALS: alert HENMT: COMMON NORMALS: atraumatic HEAD & SCALP: atraumatic MOUTH: moist mucous membranes not abnormal Eye: COMMON NORMALS: EOMs intact bilaterally and conjunctivae normal CONJUNCTIVA: Yes conjunctivae normal Neck/C-Spine: COMMON NORMALS: full ROM and supple Resp: COMMON NORMALS: normal respiratory effort and clear to auscultation bilaterally AUSCULTATION: clear to auscultation bilaterally Cardio: COMMON NORMALS: regular rate RATE: regular rate GI: COMMON NORMALS: Soft to palpation and non-tender PALPATION: Yes Soft to palpation Extremity: COMMON NORMALS: full ROM Neuro: SENSORIUM/ORIENTATION: Yes alert MOTOR EXAM: No Abnormal motor strength present and Other motor observations present (no focal motor deficits) Psych: COMMON NORMALS: speech normal SPEECH: Yes normal speech MOOD & AFFECT: Yes euthymic mood Course Vital Signs: Vital signs: Vital Signs Pulse Rate 70 12/17/21 11:43 Respiratory Rate 16 12/17/21 11:43 Blood Pressure 131/66 12/17/21 11:43 Pulse Oximetry 97 12/17/21 11:43 MDM - General Adult Medical Decision Making 51-year-old female with a history of anxiety presenting to the emergency room with worsening symptoms last 3 days. Patient denies any SI/HI/AH/VH. Patient's thoughts are linear at this time. Patient received 2 mg Ativan with reports of significant improvement. I discussed case with Dr. Mcgowan who recommended sending patient home with [address] Mcgowan does not think patient needs acute psychiatric inpatient evaluation/hospitalization I have given patient follow up with our continuous pillowcase cutter to be seen by our outpatient [facility] for evaluation of anxiety. Patient aware of a call from our continuous pillowcase cutter to schedule for appointment(s) and verbalizes understanding of the importance of following up. Rx vestaril 25mg BID PRN anxiety Disposition: Discharge. Patient counseled regarding diagnostic impression, treatment plan. Patient given ED strict return precautions to return for continuation, worsening, or development of new symptoms. Instructed to f/u w/ [facility] regarding symptoms today. Patient verbalized understanding. Lab Data Laboratory Results Urine Opiates Screen Negative ng/mL (Negative) 12/17/21 10:56 Ur Barbiturates Screen Negative ng/mL (Negative) 12/17/21 10:56 Ur Phencyclidine Scrn Negative ng/mL (Negative) 12/17/21 10:56 Ur Amphetamines Screen Negative ng/mL (Negative) 12/17/21 10:56 U Benzodiazepines Scrn Negative ng/mL (Negative) 12/17/21 10:56 Urine Cocaine Screen Negative ng/mL (Negative) 12/17/21 10:56 U Marijuana (THC) Screen Negative ng/mL (Negative) 12/17/21 10:56 Discharge Plan Discharge Patient Disposition: Home Clinical Impression: Anxiety Condition: Stable Prescriptions: New Vistaril 25 mg capsule 25 mg PO BID PRN (Reason: anxiety) 15 Days Qty: 30 0RF No Action Stress Vitamins Tablet 1 tab PO DAILY 0RF ibuprofen 200 mg Tablet 600 mg PO Q6H PRN (Reason: Pain) 0RF albuterol sulfate 90 mcg/actuation HFA aerosol inhaler 2 puff INHALATION Q4H PRN (Reason: Shortness Of Breath) 0RF Discharge Orders: Discharge ED (Routine); Ordered 12/17/21 Ordered By: Margaret Antoine Discharge Diet: Advance as tolerated Discharge Activity: Increase activity as tolerated Patient Instructions: Anxiety (ED) Activity Restrictions/Additional Instructions: Our continuous pillowcase cutter will have [facility] next few days. You would be expected to have a phone call with our continuous pillowcase cutter who will put you on the schedule. You can expect a call from us in the next 2-3 days. If you don't hear from us, call us back in the emergency room at [phone]. Please come back to the emergency room if you need help, have any hallucinations, or you have any depression or have thoughts about hurting yourself or other people. Coding Level of Care Code ED Clam Dredge Boat Captain for Jordyn Fwimelda Exam Comprehensive
[2021-12-17] MEDS: LORazepam 2 mg Tablet PO (12:00)
[2021-12-17 12:10] LABS: Amphetamines Screen Urine Negative (Negative); Barbiturates Screen Urine Negative (Negative); Benzodiazepines Screen Urine Negative (Negative); Cocaine Screen Urine Negative (Negative); Opiate Screen Urine Negative (Negative); PCP Screen Urine Negative (Negative); THC Screen Urine Negative (Negative)
--- NOTE | 2021-12-18 10:18 | DCPLANNER ---
ux manager had message to speak with patient about services at [facility]. ux manager called [phone], unable to speak with patient and unable to leave a voicemail for patient.
== END 2021-12-17 12:15 | disposition home or self-care (01) ==
PROVIDERS: Emergency Provider Emergency Medicine
DX: F41.9 Anxiety disorder, unspecified (principal); Z59.01 Sheltered homelessness
CPT/HCPCS: 80306; 99283

== ENCOUNTER 2022-06-08 20:05 | Emergency (ER) | payer MEDICARE, MEDICAID, SELFPAY ==
[2022-06-08 20:15] VITALS: BMI 30.4
--- NOTE | 2022-06-08 21:13 | XRR_ITS ---
PROCEDURE INFORMATION: Exam: XR Left Knee Exam date and time: 06/08/2022 9:15 PM Age: 52 years old Clinical indication: Pain; Knee; Left; Additional info: Injury TECHNIQUE: Imaging protocol: Radiologic exam of the Left knee. Views: 3 views. COMPARISON: No relevant prior studies available. FINDINGS: Bones/joints: Normal. Soft tissues: Normal. XR/XR knee LT 3V* [id number] IMPRESSION: No acute findings.
--- NOTE | 2022-06-08 21:13 | W.ED.EXTPRO ---
HPI - Extremity Problem General: Chief complaint: Extremity Injury, Lower Stated complaint: Left Knee Pain Time Seen by Provider: 06/08/22 21:05 History of Present Illness: 52-year-old female comes in today for complaints of injury to the left knee. Patient states that she was standing up from cleaning a toilet when she felt a pop in her left knee this afternoon. Patient has had continued pain and discomfort since then. Patient appears in mild to moderate pain. Patient appears nontoxic. Associated symptoms: Deny chest pain Review of Systems General: Reports: 10 or more systems reviewed and unremarkable except in HPI and below Card: Denies: chest pain Resp: Denies: dyspnea Musc: Reports: extremity pain (Left knee pain) PFS ED PFSH: Medical History Psychiatric care Family History Denies family history of CAD (coronary artery disease) Social History (Updated 12/17/21 @ 11:58 by Margaret Antoine MD) Smoking and tobacco status: never smoked Alcohol intake: never Female Reproductive History: Date of last menstrual period: 03/30/12 Physical Exam Const: COMMON NORMALS: alert HENMT: COMMON NORMALS: normocephalic HEAD & SCALP: normocephalic Resp: COMMON NORMALS: normal respiratory effort Cardio: COMMON NORMALS: regular rate RATE: regular rate Extremity: COMMON NORMALS: full ROM LEFT LOWER EXTREMITY: Yes knee joint (Mild anterior joint tenderness. Minimal swelling) Left knee: Yes inspection, Yes palpation and Yes ROM Neuro: SENSORIUM/ORIENTATION: Yes alert Course Vital Signs: Vital signs: Vital Signs Oxygen Delivery Me thod 06/08/22 20:15 MDM - Extremity (Nontraumatic) Medical Decision Making Patient comes in today for complaints of injury to the left knee. On exam there is some tenderness to the anterior knee with minimal to no swelling. Distal pulses and sensation are normal. Patient has normal range of motion and is able to bear weight with mild to moderate pain. Differential diagnosis includes degenerative joint disease, meniscal injury, sprain. X-rays noted some degenerative changes. Suspect patient probably has some meniscal deterioration which is causing some irregularities in the knee joint causing at popping sensation. Patient reported understanding and recommendations for care. Discharge Plan Discharge Patient Disposition: Home Clinical Impression: Knee sprain Qualifiers: Encounter type: initial encounter Involved ligament of knee: unspecified ligament Laterality: left Qualified Code(s): S83.92XA - Sprain of unspecified site of left knee, initial encounter Condition: Stable Prescriptions: No Action Stress Vitamins Tablet 1 tab PO DAILY ibuprofen 200 mg Tablet 600 mg PO Q6H PRN (Reason: Pain) albuterol sulfate 90 mcg/actuation HFA aerosol inhaler 2 puff INHALATION Q4H PRN (Reason: Shortness Of Breath) Discharge Orders: Discharge ED (Routine); Ordered 06/08/22 Ordered By: [place] Discharge Diet: Usual diet Discharge Activity: Increase activity as tolerated Patient Instructions: Knee Sprain (ED) Activity Restrictions/Additional Instructions: Home and rest. Activity as tolerated. Use acetaminophen and ibuprofen for pain. Follow-up with primary care for further instruction. Return to ER for new concerns. Coding Level of Care Code ED Welder Apprentice Combination for Jordyn Morley
[2022-06-08] MEDS: HYDROcodone-acetaminophen 5-325 mg Tablet 1 TAB PO (21:49)
== END 2022-06-08 21:55 | disposition home or self-care (01) ==
PROVIDERS: Emergency Provider Nurse Practitioner Family
DX: S83.92XA Sprain of unspecified site of left knee, initial encounter (principal); X58.XXXA Exposure to other specified factors, initial encounter
CPT/HCPCS: 73562; 99283